=== PATIENT | male | born 1960 | race Two or more races ===

== ENCOUNTER 2020-12-30 07:43 | Day surgery (SDC) | payer OTHER, SELFPAY ==
[~2020-12-30] VITALS: Ht 175.3 cm; Wt 93.4 kg
[2020-12-30] MEDS ORDERED: LIDOCAINE 2% 100 MG/5 ML UJET TP ONE ×2 (09:02→09:30)
[2020-12-30] MEDS ORDERED: fentaNYL citrate 0.05 MG/ML VIAL ONE (09:02)
[2020-12-30] MEDS ORDERED: fentaNYL citrate 0.05 MG/ML VIAL IVP ONE (09:30)
== END 2020-12-30 09:54 | disposition home or self-care (01) ==
LOC: MDS 07:43 → MFCC 07:44 → MDS 09:54
PROVIDERS: ATTEND Internal Medicine Gastroenterology
DX: Z12.11 Encounter for screening for malignant neoplasm of colon (principal); Z20.822 Contact with and (suspected) exposure to COVID-19
CPT/HCPCS: 45378; 87426; J3010; J7030